=== PATIENT | female | born 1955 | race Caucasian/White ===

== ENCOUNTER 2024-02-24 10:41 | Emergency (ER) | payer MEDICARE, SELFPAY ==
[2024-02-24 10:53] VITALS: BP 112/67; PULSE 105; RESP 12; TEMP 37.4; O2SAT 98
[2024-02-24 11:01] VITALS: RESP 12
--- NOTE | 2024-02-24 11:33 | ED.GENADUL_ITS ---
Discharge Plan Disposition Patient Disposition: Home Condition: Stable Discharge Details Clinical Impression: COVID-19 ED Provider: Colin Olivas Home Meds and New Rx's Prescriptions: New Paxlovid 300 mg (150 mg x 2)-100 mg tablets,dose pack See Rx Instructions .ROUTE .COMPLEX Qty: 30 0RF Rx Instructions: take TWO 150 mg tablets of nirmatrelvir with ONE 100 mg tablet of ritonavir twice daily for 5 days Continued amlodipine 10 mg tablet 10 mg PO DAILY Patient Comments: TAKE 1 TABLET BY MOUTH EVERY DAY pravastatin 20 mg tablet 20 mg PO DAILY Patient Comments: TAKE 1 TABLET BY MOUTH EVERY DAY losartan 100 mg tablet 100 mg PO DAILY Patient Comments: TAKE 1 TABLET BY MOUTH EVERY DAY levothyroxine 112 mcg tablet 112 mcg PO DAILY Patient Comments: TAKE 1 TABLET BY MOUTH EVERY DAY levothyroxine 100 mcg tablet Patient Comments: TAKE 1 TABLET BY MOUTH ONE TIME DAILY.. ezetimibe 10 mg tablet 10 mg PO DAILY Patient Comments: TAKE 1 TABLET BY MOUTH EVERY DAY Discharge Instructions Instructions: COVID-19 ED Additional Instructions: Please drink plenty of fluids to stay hydrated. Allow for plenty of rest. Please contact your primary care physician to arrange follow-up. Return to the ER immediately for any worsening or new concerning symptoms. HPI General Mode of arrival: ambulatory . Date/Time Provider Initiated Documentation: 02/24/24 11:09 . Limitations to Documentation: no limitations . Information obtained by: patient . HPI Narrative: 68-year-old female with history of hypothyroidism, hypercholesterolemia, hypertension, presents with URI symptoms and fatigue for the past 1 day with positive home COVID test. Patient is vaccinated against COVID and has not had COVID in the past. She has no shortness of breath. Related Data Home Medications ?Medication ?Instructions ?Recorded ?Confirmed amlodipine 10 mg tablet 10 mg PO DAILY 02/24/24 02/24/24 ezetimibe 10 mg tablet 10 mg PO DAILY 02/24/24 02/24/24 levothyroxine 100 mcg tablet mcg 02/24/24 levothyroxine 112 mcg tablet 112 mcg PO DAILY 02/24/24 02/24/24 losartan 100 mg tablet 100 mg PO DAILY 02/24/24 02/24/24 nirmatrelvir 300 mg (150 mg See Rx Instructions PO .COMPLEX 02/24/24 x2)-ritonavir 100 mg tablet,dose #30 dose pk pack (Paxlovid) pravastatin 20 mg tablet 20 mg PO DAILY 02/24/24 02/24/24 Previous Rx's ?Medication ?Instructions ?Recorded nirmatrelvir 300 mg (150 mg See Rx Instructions PO .COMPLEX 02/24/24 x2)-ritonavir 100 mg tablet,dose #30 dose pk pack (Paxlovid) Allergies Allergy/AdvReac Type Severity Reaction Status Date / Time Sulfa (Sulfonamide AdvReac Intermediate Skin Rash Verified 02/24/24 10:58 Antibiotics) General Stated Complaint: GenMedical BRENDEN: 4 Review of Systems Constitutional Constitutional: Reports fatigue, Denies fever(s) and Reports headache(s) ENT Ears, Nose, Mouth, and Throat: Reports headache(s) and Reports sore throat Cardiovascular Cardiovascular: Denies chest pain Respiratory Respiratory: Reports cough Neurologic Neurologic: Reports headache(s) Endocrine Endocrine: Reports fatigue Exam Const General: cooperative and no acute distress HENMT Mouth: mucous membranes dry Eyes Conjunctivae: normal conjunctivae Sclera: normal sclerae Resp Auscultation: clear to auscultation bilaterally, no rales, no rhonchi and no wheezes Cardio Rate: regular rate and not tachycardic Rhythm: regular rhythm Neuro General: patient alert, patient awake and tone normal Extrem General: no edema Course Vital Signs Vital signs: Vital Signs Temperature 37.4 C 02/24/24 10:53 Pulse 105 H 02/24/24 10:53 Respiratory Rate 12 02/24/24 10:53 Blood Pressure 112/67 02/24/24 10:53 Pulse Oximetry 98 02/24/24 10:53 Temperature 37.4 C 02/24/24 10:53 Temperature Source Tympanic 02/24/24 10:53 Pulse 105 H 02/24/24 10:53 Respiratory Rate 12 02/24/24 11:01 Respiratory Effort Normal, Non-Labored 02/24/24 11:01 Respiratory Depth Normal 02/24/24 11:01 Respiratory Pattern Normal 02/24/24 11:01 Blood Pressure 112/67 02/24/24 10:53 Blood Pressure Position Sitting 02/24/24 10:53 Pulse Oximetry 98 02/24/24 10:53 Oxygen Delivery Method Room Air 02/24/24 10:53 Oxygen Flow Rate 0 09/06/24 10:53 Pain Level 1 02/24/24 10:53 Medical Decision Making 68-year-old female here with URI symptoms, headache, fatigue, positive home COVID test. sick with similar over the past few days and also positive. Patient has no shortness of breath or chest pain. She is saturating well in no respiratory distress and is hemodynamically stable. Plan to initiate antiviral treatment. Discussed patient's medications with pharmacist who notes no severe interactions. I did discuss with patient potential interaction with amlodipine and levothyroxine. Patient provided informed consent to treat. I discussed renal function with the patient, no recent labs on file here, [place]. She notes normal recent renal function. No indication to renally dose Paxlovid. Prescription for Paxlovid sent to pharmacy. Usual and customary discharge instructions were reviewed with the patient. She was encouraged to rest and drink plenty of fluid and return immediately should she have any worsening or new concerning symptoms. Quality:SDOH Health Related Social Needs: No Data to Display PFSH All Active Problems COVID-19 (Acute) Social History Smoking risk assessment performed?: No PAWSS Have you Been Recently Intoxicated or Drunk Within the Last 30 days?: No Have you Ever Experienced Previous Episodes of Alcohol Withdrawal?: No Have you ever Experienced Withdrawal Seizures?: No Have you ever Experienced Delirium Tremens(DT)s?: No Have you ever undergone Alcohol Rehabilitation Treatment (i.e, inpt ot outpatient treatment programs)?: No Have you ever Experienced Blackouts?: No Have you ever Combined Alcohol with other Downers within the last 90 days?: No Have you ever Combined Alcohol with any other Substance of Abuse during the last 90 days?: No Positive Blood Alcohol level on Presentation? [PCS.BAL]: No Evidence of Increased Autonomic Activity (i.e. HR>120, tremor, sweating, agitation, nausea)?: No Result: 0
[2024-02-24 12:16] LABS: Influenza A PCR Negative (Negative); Influenza B PCR Negative (Negative); RSV PCR Negative (Negative)
[2024-02-24 12:18] LABS: COVID-19 PCR Positive (Negative); Source Nasopharynx
== END 2024-02-24 11:59 | disposition home or self-care (01) ==
LOC: ER 12:01
PROVIDERS: Emergency Provider Student in an Organized Health Care Education/Training Program
DX: U07.1 COVID-19 (principal); I10 Essential (primary) hypertension; E03.9 Hypothyroidism, unspecified; E78.00 Pure hypercholesterolemia, unspecified
CPT/HCPCS: 87637; 99283; 99284